=== PATIENT | male | born 1960 | race Caucasian/White ===

== ENCOUNTER 2018-02-22 16:36 | Emergency (ER) | payer OTHER ==
[2018-02-22 16:49] VITALS: BP 119/72
--- NOTE | 2018-02-22 18:21 | ED ---
Laceration/Wound HPI - HPI Summary HPI Summary: Pt. is a 58 y.o male who presents to the ER for a laceration to his right thumb that occurred just prior to arrival. Patient states he was chiseling wood when the chisel slipped and cut thumb. States his last tetanus immunization was within 5 years. He has no significant past medical history. Symptoms are mild in severity. Touching the wound exacerbates symptoms. Rest makes symptoms better. - History of Current Complaint Stated Complaint: RT HAND LAC Time Seen by Provider: 02/22/18 17:26 Hx Obtained From: Patient Pain Intensity: 0 Pain Scale Used: 0-10 Numeric - Allergy/Home Medications Allergies/Adverse Reactions: Allergies Allergy/AdvReac Type Severity Reaction Status Date / Time No Known Allergies Allergy Verified 06/25/16 10:25 Home Medications: Home Medications NK [No Home Medications Reported] 02/22/18 [History Confirmed 02/22/18] PMH/Surg Hx/FS Hx/Imm Hx Previously Healthy: Yes Musculoskeletal History: Denies: Hx Rheumatoid Arthritis, Hx Osteoporosis - Surgical History Surgery Procedure, Year, and Place: hernia surgery Infectious Disease History: No Infectious Disease History: Denies: History Other Infectious Disease, Traveled Outside the in Last 30 Days - Social History Occupation: Employed Full-time Lives: With Family Alcohol Use: Rare Substance Use Type: Reports: None Smoking Status (MU): Never Smoked Tobacco Review of Systems Positive: Other - right thumb laceration All Other Systems Reviewed And Are Negative: Yes Physical Exam Triage Information Reviewed: Yes Vital Signs On Initial Exam: Initial Vitals Temp Pulse Resp BP Pulse Ox 98.5 F 68 18 119/72 97 02/22/18 16:40 02/22/18 16:40 02/22/18 16:40 02/22/18 16:40 02/22/18 16:40 Vital Signs Reviewed: Yes Appearance: Positive: Well-Appearing - Patient sitting in chair in no acute distress. Very pleasant. Skin: Positive: Warm, Dry Head/Face: Positive: Normal Head/Face Inspection Eyes: Positive: Normal, LEILANI Neck: Positive: Supple Musculoskeletal: Positive: Other - 1 cm horizontal laceration noted to the distal aspect of the right fifth digit of hand on the lateral volar surface. Minimal active bleeding. Flexor, extensor tendons are intact. No bony tenderness. Neurological: Positive: Normal, CN Intact II-III Psychiatric: Positive: Normal Procedures - Laceration/Wound Repair 1 Location: Other - ate some Length, Depth and Shape: 1 cm linear Betadine Prep?: Yes Laceration/Wound Explored: clean Closure: Single Layer Suture Type: Nylon - 4-0 Number of Sutures: 3 Layer Closure?: No Sterile Dressing Applied?: Yes Diagnostics - Vital Signs Vital Signs Temp Pulse Resp BP Pulse Ox 02/22/18 16:40 98.5 F 68 18 119/72 97 - Laboratory Lab Statement: Any lab studies that have been ordered have been reviewed, and results considered in the medical decision making process. Laceration Repair Course/Dx - Course Course Of Treatment: Patient presenting to the ER for a simple thumb laceration. Tendons are intact. Laceration is repaired as noted above. Advised patient suture removal in 7-10 days. Keep the wound clean and dry. To return to the ER for redness, swelling or drainage from suture site. - Differential Dx Differental Diagnoses: Laceration, Puncture Wound, Tendon Laceration - Clinical Impression Provider Diagnoses: Laceration Discharge - Sign-Out/Discharge Documenting (check all that apply): Discharge/Admit/Transfer - Discharge Plan Condition: Good Disposition: HOME Patient Education Materials: Laceration (ED) Referrals: Garima Santiago MD [Primary Care Provider] - Additional Instructions: Suture removal in 7-10 days Keep wound clean and dry Return to ER for redness, swelling or drainage at suture site - Billing Disposition and Condition Condition: GOOD Disposition: HOME
== END 2018-02-22 18:09 | disposition home or self-care (01) ==
LOC: ED 16:36
DX: S61.011A Laceration without foreign body of right thumb without damage to nail, initial encounter (principal); W27.0XXA Contact with workbench tool, initial encounter; Y92.9 Unspecified place or not applicable
CPT/HCPCS: 12001; 99282